=== PATIENT | female | born 1980 | race Caucasian/White ===

== ENCOUNTER 2019-09-28 14:26 | Emergency (ER) | payer SELFPAY ==
[2019-09-28] MEDS ORDERED: MORPHINE 4 MG/ML SYR ONE ×2 (14:45→15:19)
[2019-09-28] MEDS ORDERED: ONDANSETRON 4 MG/2 ML VIAL ONE ×2 (14:45→15:19)
[2019-09-28] MEDS ORDERED: NA CHLORIDE 0.9% 1,000 ML ONE (14:46)
[2019-09-28 15:19] LABS: Basophils % 0.3 % (0-1.3); Hematocrit 40.4 % (36.0-45.0); Lymphocytes % 11.2 % (15.3-44.8); MPV 8.1 fL (7.6-11.3); RBC Red Blood Cell Count 4.68 M/uL (3.86-4.86)
[2019-09-28] MEDS ORDERED: TETANUS & DIPHTHERIA TOX,ADULT 0.5 ML VIAL ONE (15:24)
[2019-09-28 15:38] LABS: Albumin 4.1 g/dL (3.4-5.0); Bilirubin Total 0.4 mg/dL (0.2-1.0); Potassium 3.5 mmol/L (3.5-5.1); Protein, Total 7.5 g/dL (6.4-8.2)
[2019-09-28] MEDS ORDERED: CEFAZOLIN/SWI 1gm 1 GM/10 ML SYR ONE (15:38)
[2019-09-28] MEDS ORDERED: FENTANYL CITR 100 MCG/2 ML ONE (15:49)
--- NOTE | 2019-09-28 15:52 | RAD REPORT ---
EXAM DESCRIPTION: RAD - Wrist Right 3 View - 09/28/2019 3:33 pm CLINICAL HISTORY: open fx Pain COMPARISON: No comparisons FINDINGS: Moderately displaced overriding fracture distal shaft of the radius is seen. Mildly commi nuted fracture of the ulna is present midshaft. Large laceration is seen distal forearm with air in t he fascia planes small bony fragments. Disruption of the distal radioulnar joint is seen. Radiocapite llar articulation appears preserved.
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
--- NOTE | 2019-09-28 17:17 | RAD REPORT ---
EXAM DESCRIPTION: RAD - Elbow Right 3 View - 09/28/2019 4:14 pm CLINICAL HISTORY: open wrist fx, elbow pain Elbow pain COMPARISON: No comparisons FINDINGS: A mild subluxation without dislocation is likely present at the radiocapitellar joint. The elbow joint is otherwise intact. Partially visualized both-bone forearm fracture again seen.
[2019-09-28 17:44] VITALS: TEMP 97.6
[2019-09-28 17:46] VITALS: O2SAT 100
[2019-09-28 17:47] VITALS: BP 115/62
== END 2019-09-28 17:40 | disposition short-term general hospital (02) ==
LOC: ER 14:26
DX: S52.301B Unspecified fracture of shaft of right radius, initial encounter for open fracture type I or II (principal); S52.251A Displaced comminuted fracture of shaft of ulna, right arm, initial encounter for closed fracture; W17.89XA Other fall from one level to another, initial encounter; Y93.55 Activity, bike riding; Y92.9 Unspecified place or not applicable
CPT/HCPCS: 36415; 80053; 85025; 90714; 96361; 96365; 96375; 99285; J0690; J2405; J3010; J7030